=== PATIENT | female | born 1965 | race Caucasian/White ===

== ENCOUNTER 2021-12-18 15:46 | Outpatient (CLI) | payer OTHER, MEDICARE, SELFPAY ==
[2021-12-18 12:58] LABS: Albumin* 4.3 g/dL (3.3-5.0); Chloride* 97 mmol/L (96-114); Potassium* 4.9 mmol/L (3.6-5.1); Sodium* 132 mmol/L (135-149)
[2021-12-18 13:00] LABS: Bilirubin Total* 0.3 mg/dL (0.1-1.5); Carbon Dioxide* 27 mmol/L (20-32); Cholesterol* 256 mg/dL (90-199); Creatinine* 0.6 mg/dL (0.5-1.5); Estimated Glomerular Filt Rate 106 ml/min
[2021-12-18 13:01] LABS: Alanine Aminotransferase* 16 U/L (4-35); Alkaline Phosphatase* 95 U/L (40-150); Aspartate Amino Transferase* 23 U/L (12-35); Blood Urea Nitrogen* 9 mg/dL (7-30); Calcium* 9.8 mg/dL (8.4-10.6); Glucose* 122 mg/dL (60-115); Total Protein* 7.3 g/dL (6.0-8.3); Triglycerides* 88 mg/dL (40-149)
[2021-12-18 13:02] LABS: HDL Cholesterol* 53 mg/dL (>=50); LDL Cholesterol Calculated 185 mg/dL (<100)
== END 2021-12-18 15:47 | disposition home or self-care (01) ==
PROVIDERS: PCP Internal Medicine; Visit Provider Internal Medicine
DX: E78.5 Hyperlipidemia, unspecified (principal); I10 Essential (primary) hypertension
CPT/HCPCS: 80053; 80061

== ENCOUNTER 2021-12-28 08:37 | Outpatient (CLI) | payer OTHER, MEDICARE, SELFPAY ==
--- NOTE | 2021-12-28 09:45 | W.ANESCHARGE ---
Anesthesia Charges Start Date/Time Anesthesia Start Date: 12/28/21 Anesthesia Start Time: 09:11 Stop Date/Time Anesthesia Stop Date: 12/28/21 Anesthesia Stop Time: 09:40 Summary Emergency: No
--- NOTE | 2021-12-28 09:47 | W.ANESCHARGE ---
Anesthesia Charges Start Date/Time Anesthesia Start Date: 12/28/21 Anesthesia Start Time: 09:11 Stop Date/Time Anesthesia Stop Date: 12/28/21 Anesthesia Stop Time: 09:40 Summary Emergency: No
== END 2021-12-28 08:38 | disposition home or self-care (01) ==
PROVIDERS: PCP Internal Medicine; Visit Provider Internal Medicine
DX: Z12.11 Encounter for screening for malignant neoplasm of colon (principal); K63.5 Polyp of colon
CPT/HCPCS: 00811; 45380; 45385; 88305; J2704

== ENCOUNTER 2023-02-04 16:57 | Outpatient (CLI) | payer OTHER, MEDICARE, SELFPAY | END 2023-02-04 16:58 | disposition home or self-care (01) | LOC: NFLDREF 02-08 00:08 | PROVIDERS: PCP Internal Medicine; Referring Provider Internal Medicine; Visit Provider Internal Medicine | DX: Z00.00 Encounter for general adult medical examination without abnormal findings (principal); I10 Essential (primary) hypertension; E78.5 Hyperlipidemia, unspecified; G89.4 Chronic pain syndrome; F32.A Depression, unspecified; Z13.9 Encounter for screening, unspecified | CPT/HCPCS: 80053; 80061 ==

== ENCOUNTER 2023-08-05 09:46 | Outpatient (CLI) | payer OTHER, MEDICARE, SELFPAY | END 2023-08-05 09:47 | disposition home or self-care (01) | LOC: NFLDREF 08-06 07:03 | PROVIDERS: PCP Internal Medicine; Referring Provider Internal Medicine; Visit Provider Internal Medicine | DX: E78.5 Hyperlipidemia, unspecified (principal) | CPT/HCPCS: 80061 ==

== ENCOUNTER 2024-02-24 08:56 | Outpatient (CLI) | payer OTHER, MEDICARE, SELFPAY | END 2024-02-24 08:57 | disposition home or self-care (01) | LOC: NFLDREF 02-28 17:16 | PROVIDERS: PCP Internal Medicine; Referring Provider Internal Medicine; Visit Provider Internal Medicine | DX: E78.5 Hyperlipidemia, unspecified (principal); I10 Essential (primary) hypertension | CPT/HCPCS: 80053; 80061 ==

== ENCOUNTER 2024-04-27 16:33 | Outpatient (CLI) | payer OTHER, MEDICARE, SELFPAY ==
--- NOTE | 2024-04-27 16:45 | CRLHL7_ITS ---
For Patients: As a result of the Century Cures Act, medical imaging exams and procedure reports are released immediately into your electronic medical record. You may view this report before your referring provider. If you have questions, please contact your health care provider. INDICATION: Lung cancer screening. TECHNIQUE: Noncontrast CT images of the chest. COMPARISON: None. FINDINGS: No focal consolidation, pleural effusion, or pneumothorax. Solid 2 mm right middle lobe nodule (series 3 image 94). Heart size is normal. No pericardial effusion. Coronary artery atherosclerotic calcifications. No mediastinal or hilar lymphadenopathy. Calcified hilar and mediastinal lymph nodes. Splenic granulomas. Multilevel thoracic spondylosis. No aggressive osseous lesions. IMPRESSION: Small right middle lobe pulmonary nodule. Lung rads category 2, benign. Continue annual screening with low-dose chest CT in 12 months. Please note that all CT scans at this facility use dose modulation, iterative reconstruction, and/or weight-based dosing when appropriate to reduce radiation dose to as low as reasonably achievable. Dictated by Vick Nolasco MD @ 04/28/2024 8:31:45 AM (Electronically Signed)
== END 2024-04-27 16:34 | disposition home or self-care (01) ==
LOC: CT 16:34
PROVIDERS: PCP Internal Medicine; Visit Provider Internal Medicine
DX: Z12.2 Encounter for screening for malignant neoplasm of respiratory organs (principal); F17.200 Nicotine dependence, unspecified, uncomplicated; R91.8 Other nonspecific abnormal finding of lung field
CPT/HCPCS: 71271

== ENCOUNTER 2025-02-21 10:09 | Outpatient (CLI) | payer OTHER, SELFPAY | END 2025-02-21 10:10 | disposition home or self-care (01) | LOC: NFLDREF 02-25 02:37 | PROVIDERS: PCP Internal Medicine; Referring Provider Internal Medicine; Visit Provider Internal Medicine | DX: E78.5 Hyperlipidemia, unspecified (principal) | CPT/HCPCS: 80053; 80061 ==